=== PATIENT | male | born 1945 | race Caucasian/White ===

== ENCOUNTER 2017-04-05 18:24 | Emergency (ER) | payer SELFPAY ==
[~2017-04-05 18:24] MED LIST: ASPIRIN81 M1 PO; ATORVASTATIN CA80 M1 PO; COMBIVENT RESPIM4 GM INH; HYDR1000 IM; METFORMIN1000 MG PO; NEURONTIN300 MG PO; NOVOLOG 70/30 M10 ML SC; PROPRANOLOL HYD20 MG PO; TRAZODONE50 MG PO
[2017-04-05 18:45] LABS: HEMATOCRIT 45.4 % (42.0-52.0); HEMOGLOBIN 14.2 g/dl (14.0-18.0); MEAN CELL VOLUME 93.4 fl (80.0-94.0); MEAN CORPUSCULAR HGB 29.2 pg (27.0-31.0); MEAN CORPUSCULAR HGB CONC 31.3 g/dl (33.0-37.0); MEAN PLATELET VOLUME 11.1 fl (9.6-12.3); NUCLEATED RED BLOOD CELL 0.1 10*3/uL (0.0-0.0); NUCLEATED RED BLOOD CELL 1.2 % (0.0-0.0); PLATELET COUNT AUTOMATED 142 10*3/uL (130-400); RED BLOOD COUNT 4.86 10*6/uL (4.50-5.90); RED CELL DISTRI WIDTH 13.5 % (0-14.5); WHITE BLOOD COUNT 6.9 10*3/uL (4.8-10.8)
[2017-04-05 18:48] LABS: ABG BASE EXCESS 1.6 mmol/L (-2.0-2.0); ABG CO2 CONTENT 40.5 mmol/L (23-27); ABG HCO3 36.8 mmol/l (22-26); ABG TEMPERATURE 97.4 F (98.0-99.0); ARTERIAL BLOOD GAS PO2 48.9 mmHg (80-90)
[2017-04-05 19:01] LABS: ALBUMIN 2.9 gm/dl (3.1-4.5); ALKALINE PHOSPHATASE 98 U/L (45-117); BILIRUBIN, TOTAL 0.8 mg/dl (0.2-1.0); BUN 15 mg/dl (7-24); C-REACTIVE PROTEIN 3.55 MG/DL (0-0.3); CARBON DIOXIDE 38 mmol/L (21-32); CHLORIDE 88 mmol/L (98-107); CKMB 1.5 ng/ml (0.5-3.6); CPK 31 U/L (39-308); EST GLOM FILT AFRICAN AMERICAN > 60 ml/min; GLUCOSE 420 mg/dL (65-99); MAGNESIUM 2.4 mg/dL (1.5-2.1); POTASSIUM 4.5 mmol/L (3.5-5.1); SGOT/AST 11 IU/L (3-35); SGPT/ALT 14 U/L (12-78); SODIUM 134 mmol/L (136-145); TOTAL PROTEIN 6.8 gm/dL (6.4-8.2)
[2017-04-05 19:02] LABS: PROTHROMBIN TIME 10.1 SECONDS (9.0-12.4)
[2017-04-05 19:03] LABS: TROPONIN I < 0.015 ng/ml (<0.045)
[2017-04-05 19:05] LABS: ARTERIAL BLOOD GAS PH 7.118 (7.35-7.45)
[2017-04-05 19:12] LABS: LYMPHOCYTE # 1.2 10*3/uL (1.3-4.4); METAMYELOCYTES 3 % (0-0); MONOCYTE # 0.6 10*3/uL (0.1-1.0); NEUTROPHIL # 4.9 10*3/uL (2.3-7.9); NEUTROPHILS 71 % (47-73); TOTAL CELLS COUNTED 100 #CELLS
[2017-04-05 19:13] LABS: PLATELET SUFFICIENCY NORMAL (NORMAL)
[2017-04-05 19:49] LABS: ABG BASE EXCESS 8.1 mmol/L (-2.0-2.0); ABG CO2 CONTENT 39.7 mmol/L (23-27); ABG HCO3 37.3 mmol/l (22-26); ABG TEMPERATURE 97.3 F (98.0-99.0); ARTERIAL BLOOD GAS PH 7.306 (7.35-7.45)
[2017-04-05 20:40] LABS: LA>2 REFLEX 2 HR DRAW NOW
== END 2017-04-05 20:06 | disposition short-term general hospital (02) ==
LOC: ED 18:24
PROVIDERS: Emergency Medicine; Emergency Medicine Emergency Medical Services
DX: I46.9 Cardiac arrest, cause unspecified (principal); F32.9 Major depressive disorder, single episode, unspecified; J44.9 Chronic obstructive pulmonary disease, unspecified; E11.9 Type 2 diabetes mellitus without complications; E78.5 Hyperlipidemia, unspecified; I10 Essential (primary) hypertension; Z79.82 Long term (current) use of aspirin; Z79.4 Long term (current) use of insulin